=== PATIENT | male | born 1995 | race Caucasian/White ===

== ENCOUNTER 2018-03-01 11:00 | Emergency (ER) | payer OTHER ==
[2018-03-01 11:00] VITALS: BMI 27.3
[2018-03-01 11:03] VITALS: TEMP 97.9; O2SAT 99
[2018-03-01] MEDS ORDERED: Naproxen 550 mg Tab PO STA (11:15)
[2018-03-01] MEDS ORDERED: Naproxen 550 mg Tab PO ONE (11:38)
--- NOTE | 2018-03-01 11:45 | C.PDOC ---
History Of Present Illness 22 year old male presents to the emergency department with complaints of left- sided chest/rib pain since Tuesday which is worse with movement and palpation of the area. Patient states that he was seen in the ED and given Toradol and a Lidoderm patch on Tuesday02-27-18. Patient stats that the pain has gotten worse. He denies cough, fever, shortness of breath, rash, and any injuries to his chest. 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 Time Seen by Provider: 03/01/18 11:02 Chief Complaint (Nursing): Rib Injury History/Exam Limitations: no limitations Onset/Duration Of Symptoms: Days (3) Current Symptoms Are (Timing): Still Present Quality Of Discomfort: "Pain" Associated Symptoms: None Past Medical History Reviewed: Historical Data, Nursing Documentation, Vital Signs Vital Signs: Last Vital Signs Temp 97.9 F 03/01/18 11:02 Pulse 65 03/01/18 11:02 Resp 18 03/01/18 11:02 BP 146/74 03/01/18 11:02 Pulse Ox 99 03/01/18 11:02 - Medical History PMH: No Chronic Diseases Surgical History: No Surg Hx - [facility] Procedures DESTRUC-SHOULDER LES NEC (01/10/13) OTH ARTHROTOMY-SHOULDER (01/10/13) PHYSICAL THERAPY NEC (05/31/14) Family History: States: No Known Family Hx - Social History Hx Tobacco Use: No Hx Alcohol Use: No Hx Substance Use: No - Immunization History Hx Tetanus Toxoid Vaccination: No Hx Influenza Vaccination: No Hx Pneumococcal Vaccination: No Review Of Systems Constitutional: Negative for: Fever Cardiovascular: Positive for: Chest Pain (ribs) Respiratory: Negative for: Shortness of Breath Skin: Negative for: Rash Physical Exam - Physical Exam Appears: Non-toxic, No Acute Distress Skin: Normal Color, Warm, Dry, No Ecchymosis Head: Atraumatic, Normacephalic Eye(s): bilateral: Normal Inspection Neck: Normal, Supple Chest: Symmetrical, Tenderness (tenderness to palpation to the mid-clavicular line of the left chest at ribs 4-5. ), No Other (crepitus) Cardiovascular: Rhythm Regular, No Murmur Respiratory: Normal Breath Sounds, No Rales, No Rhonchi, No Wheezing Gastrointestinal/Abdominal: Soft, No Tenderness Neurological/Psych: Oriented x3, Normal Speech, Normal Cognition ED Course And Treatment ECG: Interpreted By Me, Viewed By Me ECG Interpretation: Normal Interpretation Of ECG: Normal sinus rhythm at 61bpm, normal axis, no acute ST/T wave changes. O2 Sat by Pulse Oximetry: 99 (RA) Pulse Ox Interpretation: Normal - Other Rad XR Ribs and Chest X-Ray: Interpreted by Me, Viewed By Me Interpretation: No fractures or dislocations. No infiltrates. Progress Note: Plan: EKG. XR Ribs and Chest. Naprosyn 550mg PO. Flexeril 10mg PO Disposition Counseled Patient/Family Regarding: Studies Performed, Diagnosis, Need For Followup, Rx Given - Disposition Referrals: Alexia Painter MD [Staff Provider] - Disposition: HOME/ ROUTINE Disposition Time: 12:00 Condition: STABLE Additional Instructions: FOLLOW UP WITH YOUR DOCTOR IN 1-2 DAYS USE MEDICATIONS NEEDED RETURN TO ER IF SYMPTOMS WORSEN Prescriptions: Diazepam [Valium] 2 mg PO BID PRN #15 tablet PRN Reason: musle spasm Naproxen [Naprosyn] 1 tab PO BID PRN #25 tab PRN Reason: Pain Instructions: Costochondritis (DC) Forms: [employer] (Greenlandic) Print Language: LITHUANIAN - Clinical Impression Clinical Impression: Costochondritis, acute - Scribe Statement The provider has reviewed the documentation as recorded by the Scribe (Harrison Carballo) Provider Attestation: All medical record entries made by the Scribe were at my direction and personally dictated by me. I have reviewed the chart and agree that the record accurately reflects my personal performance of the history, physical exam, medical decision making, and the department course for this patient. I have also personally directed, reviewed, and agree with the discharge instructions and disposition.
[2018-03-01 12:15] VITALS: BP 121/73; PULSE 54; RESP 20
--- NOTE | 2018-03-01 13:54 | RAD ---
Date of service: 03/01/2018 PROCEDURE: Radiographs of the Chest and Left Ribs. HISTORY: LEFT SIDED CHEST/RIB PAIN COMPARISON: 03/15/2013. TECHNIQUE: Frontal radiograph of the chest and multiple oblique radiographs of the left ribs were obtained. FINDINGS: LEFT RIBS: No fracture or focal lesion visualized. LUNGS: Clear. PLEURA: No pneumothorax or pleural fluid. CARDIOVASCULAR: Normal cardiac size. No pulmonary vascular congestion. No aortic atherosclerotic calcification present OTHER FINDINGS: None. IMPRESSION: Unremarkable radiographs of the chest and left ribs. No left rib fracture.
--- NOTE | 2018-03-03 15:46 | CARD ---
APPROVED REPORT Date of service: 03/01/2018 EKG Measurement Heart [id number] <Conclusion> Normal sinus rhythm Normal ECG
== END 2018-03-01 12:20 | disposition home or self-care (01) ==
LOC: C.ER 11:00
DX: M94.0 Chondrocostal junction syndrome [Tietze] (principal)

== ENCOUNTER 2018-04-08 09:17 | Emergency (ER) | payer OTHER ==
[2018-04-08 09:17] VITALS: BMI 27.3
[2018-04-08 09:30] VITALS: PULSE 63; RESP 16; TEMP 98.6; O2SAT 100
--- NOTE | 2018-04-08 09:36 | C.PDOC ---
History Of Present Illness 22 year old male presents to the ED for evaluation of acute exacerbated right shoulder pain for 2 weeks. The patient notes the pain is localized, feels like something is clicking inside, worse with chest abduction. Denies recent trauma, numbness, tingling, and any other associated symptoms. ACUTE EXAC R SHOULDER PAIN X 2 WEEKS. PS HO PRIOR R SHOULDER SURGERY 2017. PAIN LOCALIZED "FEELS LIKE SOMETHING IS CLICKING INSIDE", WORSE CHEST ABDUCTION. NO RECENT TRAUMA, OTHER ASSOC SX EXAM NAD EXT R SHOULDER ATRAUM. +PALP CREP OVER AC AREA, NO GROSS SWELL. REPRODUC PAIN W FLEX/EXT ROTATION. NEURO INTACT Time Seen by Provider: 04/08/18 09:27 Chief Complaint (Nursing): Upper Extremity Problem/Injury History Per: Patient History/Exam Limitations: no limitations Onset/Duration Of Symptoms: Days (x2 weeks. ) Current Symptoms Are (Timing): Still Present Exacerbating Factor(s): Movement Recent travel outside of the [place]: No Past Medical History Reviewed: Historical Data, Nursing Documentation, Vital Signs Vital Signs: Last Vital Signs Temp 98.6 F 04/08/18 09:29 Pulse 63 04/08/18 09:29 Resp 16 04/08/18 09:29 BP Pulse Ox 100 04/08/18 09:29 - [facility] Procedures DESTRUC-SHOULDER LES NEC (01/10/13) OTH ARTHROTOMY-SHOULDER (01/10/13) PHYSICAL THERAPY NEC (05/31/14) Family History: States: Unknown Family Hx - Social History Hx Tobacco Use: No Hx Alcohol Use: No Hx Substance Use: No - Immunization History Hx Tetanus Toxoid Vaccination: No Hx Influenza Vaccination: No Hx Pneumococcal Vaccination: No Review Of Systems Except As Marked, All Systems Reviewed And Found Negative. Constitutional: Negative for: Other (recent trauma. ) Neurological: Negative for: Weakness, Numbness, Incoordination Physical Exam - Physical Exam Appears: Non-toxic, No Acute Distress Skin: Warm, Dry Head: Atraumatic, Normacephalic Eye(s): bilateral: Normal Inspection Oral Mucosa: Moist Neck: Normal ROM, Supple Cardiovascular: Rhythm Regular, No Murmur Respiratory: Normal Breath Sounds, Other (NARD) Extremity: No Deformity, No Swelling ((-) gross swelling.), Other ((+) PALP CREP OVER AC AREA. (-) RT shoulder atraumatic. ) Neurological/Psych: Oriented x3, Normal Speech, Normal Cognition, Normal Motor, Normal Sensation, Normal Reflexes ED Course And Treatment O2 Sat by Pulse Oximetry: 100 (RA) Pulse Ox Interpretation: Normal - Other Rad R SHOULDER X-Ray: Interpreted by Me (NEG) Medical Decision Making Medical Decision Making: Initial plan: -RT Shoulder x-ray Disposition Counseled Patient/Family Regarding: Studies Performed, Diagnosis, Need For Followup - Disposition Referrals: YOUR,PMD [Other] Disposition: HOME/ ROUTINE Disposition Time: 10:20 Condition: GOOD Instructions: Shoulder Sprain (DC) Forms: [employer] (Tajik) - Clinical Impression Clinical Impression: Acromioclavicular (joint) (ligament) sprain - Scribe Statement The provider has reviewed the documentation as recorded by the Scribe (Neeru See) Provider Attestation: All medical record entries made by the Scribe were at my direction and personally dictated by me. I have reviewed the chart and agree that the record accurately reflects my personal performance of the history, physical exam, medical decision making, and the department course for this patient. I have also personally directed, reviewed, and agree with the discharge instructions and di sposition.
--- NOTE | 2018-04-08 11:58 | RAD ---
Date of service: 04/08/2018 PROCEDURE: Radiographs of the Right Shoulder HISTORY: AC JOINT PAIN, CREPITUS COMPARISON: No prior. FINDINGS: BONES: Normal. No fracture. JOINTS: Normal. Glenohumeral and acromioclavicular joints preserved. No osteoarthritis. SOFT TISSUES: Normal. OTHER FINDINGS: None. IMPRESSION: Normal radiographs of the right shoulder.
== END 2018-04-08 10:32 | disposition home or self-care (01) ==
LOC: C.ER 09:17
DX: S43.51XA Sprain of right acromioclavicular joint, initial encounter (principal); X58.XXXA Exposure to other specified factors, initial encounter